=== PATIENT | female | born 1960 | race Caucasian/White ===

== ENCOUNTER → 2021-05-22 | Outpatient (CLI) | payer MEDICARE, SELFPAY ==
--- NOTE | 2021-05-22 | LES_PTH ---
PATIENT: ELIECER MCMILLAN LOC: [facility] U#:[id number] AGE/SX: 60/F ROOM: RE05/22/[address]: Dr. Gerardo Lmia MD : 1960 BED: DIS: 05/22/2021 SPEC #: [id number] RECD: 05/22/21 17:49 STATUS: NIKI REGama #: [id number] TAYO: 05/22/21 00:[address]: Gerardo Lima DEPT: SURGICAL PATHOLOGY RECD BY: Cheryl Whitehead ENTERED: 05/23/21 10:09 SP TYPE: Lesion OTHR DR: Dr. Demetria Becker, DO Tissues: Skin of eyelid, NOS Procedures: Surgery Specimen Level IV HEADER OPERATION: Right upper eyelid lesion biopsy PRE-OP DIAGNOSIS: Possible cyst TISSUE SUBMITTED: Right upper lid lesion MICROSCOPIC DIAGNOSIS Right upper lid lesion, biopsy: Intradermal nevus. JAIME:soham 05/24/2021 MICROSCOPIC DESCRIPTION Slides are reviewed. GROSS DESCRIPTION Received in fixative is one container labeled with the patient's name and designated RUL. The specimen consists of a piece of morales-white skin measuring 0.2 x 0.2 x 0.1 cm. The entire specimen is submitted in one cassette. / SJ:rg 05/23/21 TC:1 CPT: 26944
== END | disposition home or self-care (01) ==
LOC: LABSPEC 05-23 08:51
PROVIDERS: PCP Family Medicine; Visit Provider Ophthalmology
DX: D22.111 Melanocytic nevi of right upper eyelid, including canthus (principal)
CPT/HCPCS: 88305